=== PATIENT | male | born 1950 ===

== ENCOUNTER 2021-08-12 09:23 | Day surgery (SDC) | payer MEDICARE, OTHER ==
[~2021-08-12] VITALS: Ht 175.3 cm; Wt 77.8 kg
[~2021-08-12 09:23] MED LIST: ASPI325; ATEN25 PO; Fish Oil 10001000 MG PO; Garlic1000 MG PO; METO50 PO; Multiple Vitam1 EAC1 PO; Omeprazole20 M1 PO
--- NOTE | 2021-08-12 10:32 | NUR ---
Patient confirms NPO status and agrees with scheduled surgery. Pre-Op teaching done. Pt verbalizes understanding. History, Chart, Medications and Allergies reviewed before start of procedure.Patient States Post-Procedure ride home has been arranged.
--- NOTE | 2021-08-12 10:36 | NUR ---
1 MISSED ATTEMPT BY ASSISTANT READING TEACHER R FORE ARM, ONE MISSED ATTEMPT BY JAMES NORTH R HAND
--- NOTE | 2021-08-12 11:15 | NUR ---
08/12/21 1115 Krystal Pugh History, Chart, Medications and Allergies reviewed before start of procedure. Patient confirms NPO status and agrees with scheduled surgery. 3-LEAD EKG REVIEWED WITH PHYSICIAN PRIOR TO START OF PROCEDURE. MONITOR INTACT WITH CONTINUOUS PULSE OXIMETRY AND INTERMITTENT BP. PATIENT DETERMINED TO BE ASA APPROPRIATE FOR PROPOFOL SEDATION PRIOR TO START OF PROCEDURE BY .
--- NOTE | 2021-08-12 12:13 | NUR ---
Patient up to Ambulate independently. Gait steady. Discharge instructions reviewed with patient. Patient verbalizes understanding. Copy given to patient to take home. Discharged via wheelchair to private car for ride home.
== END 2021-08-12 22:56 | disposition home or self-care (01) ==
LOC: ORSCMMR 09:23 → ORD 10:00 → ORSCMMR 10:00
PROVIDERS: Internal Medicine Gastroenterology
PROC: 0DJD8ZZ Inspection of Lower Intestinal Tract, Via Natural or Artificial Opening Endoscopic (ICD-10-PCS; principal; 2021-08-12 10:00)
DX: Z12.11 Encounter for screening for malignant neoplasm of colon (principal); K64.8 Other hemorrhoids; I10 Essential (primary) hypertension; K21.9 Gastro-esophageal reflux disease without esophagitis; K22.2 Esophageal obstruction; Z79.899 Other long term (current) drug therapy
CPT/HCPCS: J2250; J2704; J3010; J7120